=== PATIENT | female | born 1950 | race Caucasian/White ===

== ENCOUNTER 2016-11-26 07:15 | Observation (INO) | payer OTHER ==
[~2016-11-26 07:15] MED LIST: DEXAMETHASONE 10 MG/ML VIAL IVP ONE; ceFAZolin 2 GM/DEXTROSE 100 ML IV ONE
[2016-11-26] MEDS ORDERED: LIDOCAINE 1% 5 ML SDV ONE (07:56)
[2016-11-26] MEDS ORDERED: BACITRACIN 50,000 UNITS/10 ML SYR IRR ONE (07:59)
[2016-11-26] MEDS ORDERED: BUPIVACAINE/EPI 0.25% 30 ML SDV ONE (07:59)
[2016-11-26] MEDS ORDERED: THROMBIN (RECOMBINANT) 5,000 UNIT VIAL TP ONE ×2 (07:59→10:39)
[2016-11-26] MEDS ORDERED: LIDOCAINE 1% 5 ML SDV ID PRN (08:12)
[2016-11-26] MEDS ORDERED: LR 1,000 ML IV ONE (08:12)
[2016-11-26] MEDS ORDERED: MIDAZOLAM 2 MG/2 ML VIAL ONE (08:52)
[2016-11-26] MEDS ORDERED: REMIFENTANIL HCL 1 MG VIAL ONE ×3 (08:58)
[2016-11-26] MEDS ORDERED: PROPOFOL 200 MG/20 ML VIAL ONE (08:58)
[2016-11-26] MEDS ORDERED: fentaNYL 100 MCG/2 ML INJ ONE ×2 (08:58→12:33)
[2016-11-26] MEDS ORDERED: PROPOFOL/EMULSION 500 MG/50 ML BOTTLE IV ONE (08:58)
[2016-11-26] MEDS ORDERED: ROCURONIUM 50 MG/5 ML VIAL ONE (09:01)
[2016-11-26] MEDS ORDERED: PHENYLEPHRINE 10 MG/ML SDV ONE (10:05)
[2016-11-26] MEDS ORDERED: epHEDrine SULFATE 10 MG/ML SYR ONE (10:05)
[2016-11-26] MEDS ORDERED: SURGIFLO MATRIX KIT WITH THROMBIN TP ONE (10:35)
[2016-11-26] MEDS ORDERED: HYDROmorphONE/DILAUDID 2 MG/ML SYR ONE (11:10)
[2016-11-26] MEDS ORDERED: AZELASTINE NASAL MDI EACHNARE PRN (11:58)
[2016-11-26] MEDS ORDERED: IBANDRONATE SODIUM 150 MG PO SCH (12:00)
[2016-11-26] MEDS ORDERED: ONDANSETRON 4 MG/2 ML VIAL IVP PRN (12:02)
[2016-11-26] MEDS ORDERED: DIAZEPAM 5 MG TAB PO PRN (12:02)
[2016-11-26] MEDS ORDERED: HYDROmorphONE/DILAUDID 1 MG/ML SYR IVP PRN (12:02)
[2016-11-26] MEDS ORDERED: POLYETHYLENE GLYCOL 3350 17 GM PKT PO PRN (12:02)
[2016-11-26] MEDS ORDERED: DIAZEPAM 10 MG/2 ML SYR IVP PRN (12:02)
[2016-11-26] MEDS ORDERED: BISACODYL 10 MG SUPP PR PRN (12:02)
[2016-11-26] MEDS ORDERED: diphenhydrAMINE 25 MG CAP PO PRN (12:02)
[2016-11-26] MEDS ORDERED: LACTULOSE 20 GM/30 ML UDCUP PO PRN (12:02)
[2016-11-26] MEDS ORDERED: ONDANSETRON DISINTEGRATING 4 MG TAB PO PRN (12:02)
[2016-11-26] MEDS ORDERED: MAGNESIUM HYDROXIDE 30 ML UDCUP PO PRN (12:02)
[2016-11-26] MEDS ORDERED: ACETAMINOPHEN 325 MG TAB PO PRN (12:02)
[2016-11-26] MEDS ORDERED: HYDROCODONE/APAP 10/325 TAB PO PRN (12:02)
--- NOTE | 2016-11-26 12:10 | POSTOPPROG ---
Post Op Note Date of Operation: 11/26/16 Surgeon: Luis A Mak Drama Critic: Josué Anesthesiologist: Courtney Anesthesia: GET(General Endotracheal) Pre-op Diagnosis: cervical stenosis Post-op Diagnosis: same Indication: neck pain, right arm pain Procedure: C3/4, C5/6, 6/7 ACDF Findings: DJD/stenosis Inf/Abcess present in the surg proc area at time of surgery?: No EBL: 50-100 Complications: None Drains: Jeremy Traylor
--- NOTE | 2016-11-26 12:14 | SOAPPROG ---
SOAP Progress Note Assessment/Plan: Assessment: 66 yo F sp C3/4, C5/6, 6/7 ACDF Plan: stable to 3N PT/OT hard collar at all times please call with neuro changes 11/26/16 12:11 Subjective: + neck pain no arm pain. Objective: Vital Signs Temp Pulse Resp BP Pulse Ox 13 113/72 96 11/26/16 12:00 11/26/16 12:00 11/26/16 12:00 AAOx4, +FC PERRL, EOMI, no facial droop IMTIAZ x 4 + light touch C/D/I ICD10 Worksheet Patient Problems: Problems Problem Status Onset Fusion of spine of cervical region Acute - ICD10 Problem Qualifiers (1) Fusion of spine of cervical region
[2016-11-26] MEDS ORDERED: NS W/ 20 KCl/L 1,000 ML IV SCH (12:15)
[2016-11-26] MEDS ORDERED: DIAZEPAM 10 MG/2 ML SYR ONE (12:39)
[2016-11-26] MEDS ORDERED: RIZATRIPTAN BENZOATE 10 MG PO PRN (13:58)
[2016-11-26] MEDS ORDERED: SUMAtriptan 25 MG TAB PO PRN (13:58)
--- NOTE | 2016-11-26 14:52 | GOP ---
DATE OF OPERATION: 11/26/2016 SURGEON: Luis A Mak MD NEUROSURGEON: Luis A Mak MD. WRAPPER STEMMER OPERATOR: KIRA Shen. ANESTHESIA: General endotracheal. PREOPERATIVE DIAGNOSIS: 1. Severe multilevel cervical spondylitic myelopathy. 2. Severe multilevel cervical spinal stenosis. 3. Severe multilevel cervical neural foraminal encroachment. 4. 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 POSTOPERATIVE DIAGNOSIS: 1. Severe multilevel cervical spondylitic myelopathy. 2. Severe multilevel cervical spinal stenosis. 3. Severe multilevel cervical neural foraminal encroachment. 4. 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 PROCEDURE PERFORMED: C3-4, C5-6, and C6-7 complete anterior cervical diskectomy and arthrodesis wit h 3 structural PEEK interbody spacers, local autograft and demineralized bone matrix. Partial C6 ve rtebral corpectomy for decompression of the spinal canal. C3-4 and C5 through C7 placement of anteri or cervical plate with self-drilling plates with self-drilling screws. Use of intraoperative micros copy and fluoroscopy. FINDINGS: ESTIMATED BLOOD LOSS: 75 cc. INDICATIONS: The patient is a 66-year-old woman with multilevel cervical spondylosis and stenosis w ith severe central canal narrowing/spinal cord compression and neural foraminal encroachment. She h as multilevel disease and is a very thin woman and I did not want to increase her risk of permanent dysphagia with a 4 level anterior cervical diskectomy and arthrodesis so I recommended doing only th e most severely affected levels including the unstable C3-4 level and the severely stenotic C5-6 and C6-7 levels and not operating on the C4-5 level. DESCRIPTION OF PROCEDURE: After informed consent was obtained, the patient was taken to the operati ng room and placed in the supine position with the head in the halter retractor system. Baseline ne uro monitoring signals were obtained, and the patient was prepped and draped in a sterile fashion af ter fluoroscopic localization of the correct levels. An incision was created in the area where I co uld hopefully approach C3-4, C5-6, and C6-7 in a horizontal fashion in a skin crease. This was mercado ied through the platysmal layer using the monopolar electrocautery and carried in the avascular plan e between the sternocleidomastoid and carotid sheath laterally and the strap muscles, trachea, and e sophagus medially down to the prevertebral fascia, which was carefully incised with Metzenbaum sciss ors. The C3-4, C5-6, and C6-7 interspaces were identified, and re-verified using intraoperative flu oroscopy. The large osteophytes were carefully harvested for local autograft. The distraction pins were carefully inserted, first at C3-4, during which time a slight amount of distraction was create d across the interspace and a complete diskectomy was performed with preparation of the endplates an d removal of the posterior and longitudinal ligament. Bilateral foraminotomies were performed. The re were large osteophytes protruding posteriorly as well. Note that the bone screw interface for th e distraction pins was relatively poor so care had to be taken to not rip the screws out. Following adequate decompression, the remaining endplates were carefully prepared, and an appropriately-sized lordotically fashioned structural PEEK interbody spacer packed with local autograft and demineraliz ed bone matrix in the center. It was placed in the interspace under fluoroscopic image guidance. T he distraction was removed, and an appropriately sized 21 mm CastleLoc-P LnK anterior cervical plate was placed and secured with self-drilling screws. After verifying good position of the screws, parminder te and interbody spacer, the locking mechanism was engaged, and the wound was copiously irrigated wi th antibiotic irrigation, and meticulous hemostasis was achieved. The distraction pins were then in serted at C5 through C7, and complete diskectomies were performed at those levels with preparation o f the endplates and removal of the posteriorly protruding osteophytes. There was quite an extensive amount of irregularity in the endplates and posteriorly protruding osteophytes that required an ext ensive amount of drilling in the superior and inferior endplates at both levels which amounted to ju st over 50% of the vertebral body at C6 for a partial C6 vertebral corpectomy. This was necessary i n order to achieve adequate decompression of the spinal canal and cord. Again, the bone was very so ft, and care was taken to not rip the distraction pins out of the vertebral body. The interspaces a nd remaining endplates were carefully prepared, and lordotically fashioned structural PEEK interbody spacers packed with local autograft and demineralized bone matrix were placed in the interspaces, a gain under fluoroscopic image guidance. The distraction was again removed and an appropriately size d CastleLoc-P LnK anterior cervical plate was then placed and secured with self-drilling screws. I was barely able to get screws in the C6 vertebral body because of all the drilling and partial corpe ctomy, but I think they were adequate. Biplanar fluoroscopy verified good positioning of the plate screws and interbody spacers and the locking mechanisms were engaged on this plate. The wound was t hen copiously irrigated with antibiotic irrigation, and meticulous hemostasis was again achieved. T he anterior holes of the plates were gently packed with the residual demineralized bone matrix. A d rain was placed, and the subcutaneous and intramuscular tissues were re-infiltrated with local anest hesia, and the wound was closed in layered fashion using interrupted Vicryl sutures followed by Ster i-Strips on the skin. COMPLICATIONS: None. DISPOSITION: The patient was extubated and transferred to the recovery room stable condition. ADDENDUM: Please note that I discussed the fact that the bone screw interface was not super solid, and she does have a risk of hardware failure or screw pull out and/or a nonunion. I discussed the p ossibility of backing the surgery posteriorly, but I do not think that is in her best interest at th is time, and instead we will keep her in a hard collar for 4-6 weeks and then transition her to a so ft collar in the hopes that she will heal adequately without further surgery. /[id number]/MODL
[2016-11-26] MEDS: OXYCODONE/APAP 5/325 TAB PO PRN ×2 (16:32→20:10)
[2016-11-26] MEDS: METHOCARBAMOL 750 MG TAB PO PRN (16:33)
[2016-11-26] MEDS: SENNOSIDES/DOCUSATE SODIUM TAB PO SCH (20:10)
[2016-11-26] MEDS: TOPIRAMATE 100 MG TAB PO SCH (20:14)
[2016-11-26] MEDS: Pentosan Polysulfate Sodium [Elmiron] 100 MG PO SCH (20:17)
[2016-11-26] MEDS ORDERED: clonazePAM 1 MG TAB PO SCH (21:00)
[2016-11-26] MEDS ORDERED: traZODone 50 MG TAB PO SCH (21:00)
[2016-11-26] MEDS ORDERED: METOPROLOL SUCCINATE XR 25 MG TAB PO SCH (21:00)
[2016-11-26] MEDS ORDERED: DULoxetine 30 MG CAP PO SCH (21:00)
[2016-11-26] MEDS ORDERED: FAMOTIDINE 20 MG/NACL 50 ML IV SCH (21:00)
[2016-11-26 23:05] VITALS: RESP 18
[2016-11-27] MEDS: OXYCODONE/APAP 5/325 TAB PO PRN ×3 (00:14→10:03)
[2016-11-27] MEDS: METHOCARBAMOL 750 MG TAB PO PRN ×2 (00:15→07:56)
[2016-11-27 05:37] LABS: % IMMATURE GRANULYOCYTES 0.3 % (0.0-1.1); ABSOLUTE IMMATURE GRANULOCYTES 0.03 10^3/uL (0.00-0.10); ADD DIFF? NO; ADD MORPH? NO; ADD SCAN? NO; ATYPICAL LYMPHOCYTE FLAG 10 (0-99); FRAGMENT RBC FLAG 0 (0-99); HEMATOCRIT 37.5 % (38.0-47.0); LEFT SHIFT FLG 0 (0-99); LIPEMIA HEMOLYSIS FLAG 80 (0-99); MEAN CELL HEMOGLOBIN 30.1 pg (27.9-34.1); MEAN PLATELET VOLUME 9.9 fL (8.7-11.7); PLATELET CLUMPS FLAG 0 (0-99); PLATELET COUNT 168 10^3/uL (150-400); RED BLOOD CELL COUNT 3.99 10^6/uL (4.18-5.33); RED CELL DISTRIBUTION WIDTH 12.8 % (11.5-15.2)
[2016-11-27 06:06] LABS: ANION GAP 12 mEq/L (8-16); CALCIUM 9.5 mg/dL (8.5-10.4); CARBON DIOXIDE 23 mEq/l (22-31); CHLORIDE 109 mEq/L (97-110); CREATININE 0.7 mg/dL (0.6-1.0); GLOMERULAR FILTRATION RATE > 60; GLUCOSE 109 mg/dL (70-100); SODIUM 144 mEq/L (134-144)
[2016-11-27] MEDS: TOPIRAMATE 100 MG TAB PO SCH (07:56)
--- NOTE | 2016-11-27 08:03 | SOAPPROG ---
SOAP Progress Note Assessment/Plan: Assessment: POD #1 s/p C3/4 and C5-7 ACDF colostomy Plan: Soft diet maintain hard collar Maintain JAYLEEN drain PT/OT/ST xrays Cspine today 11/27/16 08:00 Subjective: In bed, comfortable. Reports difficulty swallowing and choking on water tolerated oatmeal last night Sensation in right arm improved Objective: Vital Signs Temp Pulse Resp BP Pulse Ox 37.1 C 66 18 163/97 H 94 11/27/16 02:57 11/27/16 02:57 11/27/16 02:57 11/27/16 02:57 11/27/16 02:57 Laboratory Results 11/27/16 04:26 11/27/16 04:26 11/26/16 11/27/16 11/28/16 05:59 05:59 05:59 Intake Total 2300 Output Total 1545 Balance 755 NEURO: JIMENEZ, sens +LT dressing: CDI JAYLEEN: 5ml in bulb. 20ml since surgery ICD10 Worksheet Patient Problems: Problems Problem Status Onset Fusion of spine of cervical region Acute
[2016-11-27] MEDS: SENNOSIDES/DOCUSATE SODIUM TAB PO SCH (08:14)
[2016-11-27] MEDS ORDERED: buPROPion SR 150 MG TAB PO SCH (09:00)
[2016-11-27] MEDS ORDERED: FAMOTIDINE 20 MG TAB PO SCH (09:00)
[2016-11-27] MEDS ORDERED: PANTOPRAZOLE SODIUM 40 MG TAB PO SCH (09:00)
[2016-11-27] MEDS ORDERED: NON-FORMULARY NEW DRUG (Omeprazole [Omeprazole] 20 MG) PO SCH (09:00)
[2016-11-27] MEDS ORDERED: DOCUSATE SODIUM 100 MG CAP PO SCH (09:00)
[2016-11-27] MEDS: Pentosan Polysulfate Sodium [Elmiron] 100 MG PO SCH (10:01)
[2016-11-27] MEDS ORDERED: PNEUMOC 13-VAL CONJ-DIP CRM/PF 0.5 ML SYR IM ONE (10:01)
[2016-11-27 10:39] VITALS: BP 130/90; PULSE 63; TEMP 98.4; O2SAT 95
[2016-11-29] MEDS ORDERED: ENOXAPARIN 40 MG/0.4 ML SYR SC SCH (09:00)
== END 2016-11-27 12:22 | disposition home or self-care (01) ==
LOC: F3N 07:24 → INTOOBSV 07:24 → F3N 13:28
PROVIDERS: ADMIT Neurological Surgery; ATTEND Neurological Surgery
PROC: 0PB30ZZ Excision of Cervical Vertebra, Open Approach (ICD-10-PCS; principal; 2016-11-26 09:00)
PROC: 0RG20A0 Fusion of 2 or more Cervical Vertebral Joints with Interbody Fusion Device, Anterior Approach, Anterior Column, Open Approach (ICD-10-PCS; principal; 2016-11-26 09:00)
PROC: 0RT30ZZ Resection of Cervical Vertebral Disc, Open Approach (ICD-10-PCS; principal; 2016-11-26 09:00)
PROC: 00NW0ZZ Release Cervical Spinal Cord, Open Approach (ICD-10-PCS; principal; 2016-11-26 09:00)
DX: M48.02 Spinal stenosis, cervical region (principal); G20 Parkinson's disease; Z23 Encounter for immunization
CPT/HCPCS: 22551; 22552; 72040; 76001; 90670; 97161; 97166; C1713; G0009; G8978; G8979; G8980; G8987; G8988; G8989; J0690; J1170; J2250; J2370; J2704; J3010

== ENCOUNTER → 2016-12-04 | Outpatient (CLI) | payer OTHER | LOC: FIMAGING 11:23 | PROVIDERS: ATTEND Neurological Surgery | DX: Z09 Encounter for follow-up examination after completed treatment for conditions other than malignant neoplasm (principal); Z98.1 Arthrodesis status; M79.89 Other specified soft tissue disorders ==

== ENCOUNTER → 2017-03-10 | Outpatient (CLI) | payer OTHER | LOC: FIMAGING 11:16 | PROVIDERS: ATTEND Physician Assistant Surgical | DX: Z47.89 Encounter for other orthopedic aftercare (principal); Z98.1 Arthrodesis status ==

== ENCOUNTER → 2017-07-02 | Outpatient (CLI) | payer OTHER | LOC: FIMAGING 10:01 | PROVIDERS: ATTEND Physician Assistant Surgical | DX: Z09 Encounter for follow-up examination after completed treatment for conditions other than malignant neoplasm (principal); M50.321 Other cervical disc degeneration at C4-C5 level; M50.33 Other cervical disc degeneration, cervicothoracic region; M12.88 Other specific arthropathies, not elsewhere classified, other specified site; Z98.1 Arthrodesis status ==